=== PATIENT | female | born 1950 | race Caucasian/White ===

== ENCOUNTER 2020-10-07 16:03 | Inpatient (IN) ==
[2020-10-07] MEDS ORDERED: cloNIDine HCL 0.1 MG TABLET PO ONE (16:27)
[2020-10-07 16:41] LABS: Bilirubin,Urine Negative (Negative); Blood,Urine Negative (Negative); Clarity,Urine Clear (Clear); Color,Urine Yellow (Yellow); Glucose,Urine (UA) Normal (Normal); Ketones,Urine Negative (Negative); Leukocyte Esterase,Urine Trace (Negative); Nitrite,Urine Negative (Negative); Protein,Urine Negative (Neg-Trace); Urobilinogen,Urine Normal (Normal)
[2020-10-07 16:48] LABS: Bacteria,Urine Few per hpf (None-Few); Squamous Epithelial Cell,Urine Moderate per hpf (None-Few)
[2020-10-07 16:51] LABS: Basophils % 0.4 %; Eosinophils # 0.2 K/mcL (0.0-0.6); Eosinophils % 1.5 %; Hematocrit 43.1 % (35.3-44.9); Hemoglobin 13.2 g/dL (11.5-15.4); Immature Granulocytes % 0.6 % (0-4); Lymphocytes # 1.6 K/mcL (0.6-4.6); Lymphocytes % 16.5 %; Mean Corpuscular HGB Conc 30.6 g/dL (31.6-35.5); Mean Corpuscular Hemoglobin 26.9 pg (28.0-33.3); Monocytes # 0.9 K/mcL (0.0-1.3); Monocytes % 8.7 %; Platelet Count 304 K/mcL (140-400); Red Cell Distribution Width 14.7 % (11.5-14.5); Segmented Neutrophils % 72.3 %; White Blood Count 9.7 K/mcL (4.3-11.1)
[2020-10-07 17:06] LABS: INR 1.2; Prothrombin Time 13.6 Seconds (9.4-12.1)
[2020-10-07 17:07] LABS: Alanine Aminotransferase 12 Units/L (7-52); Albumin 3.9 g/dL (3.5-5.7); Albumin/Globulin Ratio 1.2 (1.1-2.2); Alkaline Phosphatase 71 Units/L (34-104); Aspartate Amino Transferase 15 Units/L (13-39); BUN/Creatinine Ratio 19 (6-26); Bilirubin,Total 0.7 mg/dL (0.3-1.0); Blood Urea Nitrogen 13 mg/dL (8-23); Calcium 9.4 mg/dL (8.6-10.3); Carbon Dioxide 26 mEq/L (23-29); Chloride 96 mEq/L (98-107); Globulin 3.3 g/dL (2.4-3.5); Glucose 100 mg/dL (70-105); Magnesium 1.9 mg/dL (1.6-2.6); Osmolality,Calculated 278 (280-300); Phosphorous 3.5 mg/dL (2.7-4.5); Potassium 3.5 mEq/L (3.5-5.1); Sodium 134 mEq/L (136-145); Total Protein 7.2 g/dL (6.4-8.9); eGFR For African Americans > 60 (> 60); eGFR For Non-African Americans > 60 (> 60)
[2020-10-07 17:09] LABS: Activated Partial Thrombo Time 30.3 Seconds (26.0-36.0)
[2020-10-07] MEDS ORDERED: Isovue-370 500 ML BOTTLE IVP ONE (17:25)
[2020-10-07] MEDS ORDERED: Aspirin 81 MG TAB.CHEW PO ONE (17:27)
[2020-10-07] MEDS ORDERED: amLODIPine 5 MG TABLET PO ONE (17:27)
[2020-10-07] MEDS ORDERED: 0.9 % Sodium Chloride 1,000 ML IV ONE (18:36)
[2020-10-07] MEDS ORDERED: *HR* HYDROcodone/Acet 5/325 mg TABLET PO PRN (18:45)
[2020-10-07] MEDS ORDERED: Melatonin 3 MG TABLET PO PRN (18:45)
[2020-10-07] MEDS ORDERED: Mag Hydrox/Al Hydrox/Simeth 30 ML UDC PO PRN (18:45)
[2020-10-07] MEDS ORDERED: Naloxone 0.4 MG/ML INJ IVP PRN (18:45)
[2020-10-07] MEDS ORDERED: Ibuprofen 400 MG TABLET PO PRN (18:45)
[2020-10-07] MEDS ORDERED: MOM Conc 10 ML UD.LIQ PO PRN (18:45)
[2020-10-07] MEDS ORDERED: Ondansetron ODT 4 MG TAB.RAPDIS SL PRN (18:45)
[2020-10-07] MEDS ORDERED: Ondansetron 4 MG/2 ML VIAL IVP PRN (18:45)
[2020-10-07] MEDS ORDERED: Acetaminophen 325 MG TABLET PO PRN (18:45)
[2020-10-07] MEDS ORDERED: hydrALAZINE 10 MG TABLET PO PRN (18:52)
[2020-10-07] MEDS ORDERED: Aspirin Enteric Coated 81 MG Tablet PO SCH (19:00)
[2020-10-07] MEDS: Aspirin Enteric Coated 81 MG Tablet PO SCH (20:42)
[2020-10-08 04:49] LABS: Basophils % 0.4 %; Eosinophils # 0.2 K/mcL (0.0-0.6); Eosinophils % 2.6 %; Hematocrit 39.5 % (35.3-44.9); Hemoglobin 12.3 g/dL (11.5-15.4); Immature Granulocytes % 0.6 % (0-4); Lymphocytes # 1.1 K/mcL (0.6-4.6); Lymphocytes % 14.7 %; Mean Corpuscular HGB Conc 31.1 g/dL (31.6-35.5); Mean Corpuscular Hemoglobin 27.3 pg (28.0-33.3); Mean Corpuscular Volume 87.6 fL (83.0-100.0); Monocytes # 0.7 K/mcL (0.0-1.3); Monocytes % 9.7 %; Neutrophils # 5.2 K/mcL (1.6-8.9); Platelet Count 258 K/mcL (140-400); Red Blood Count 4.51 M/mcL (3.82-4.97); Red Cell Distribution Width 14.7 % (11.5-14.5); White Blood Count 7.2 K/mcL (4.3-11.1)
[2020-10-08 05:07] LABS: Alanine Aminotransferase 11 Units/L (7-52); Albumin 3.5 g/dL (3.5-5.7); Albumin/Globulin Ratio 1.2 (1.1-2.2); Alkaline Phosphatase 62 Units/L (34-104); Aspartate Amino Transferase 14 Units/L (13-39); BUN/Creatinine Ratio 14 (6-26); Bilirubin,Total 0.6 mg/dL (0.3-1.0); Blood Urea Nitrogen 8 mg/dL (8-23); Calcium 8.9 mg/dL (8.6-10.3); Carbon Dioxide 28 mEq/L (23-29); Chloride 102 mEq/L (98-107); Cholesterol 175 mg/dL (< 200); Globulin 2.9 g/dL (2.4-3.5); Glucose 85 mg/dL (70-105); HDL Cholesterol 44 mg/dL (40-59); LDL Cholesterol,Calculated 118 mg/dL (< 100); Osmolality,Calculated 286 (280-300); Phosphorous 3.6 mg/dL (2.7-4.5); Potassium 3.8 mEq/L (3.5-5.1); Sodium 139 mEq/L (136-145); Total Protein 6.4 g/dL (6.4-8.9); Triglycerides 66 mg/dL (< 150); eGFR For African Americans > 60 (> 60); eGFR For Non-African Americans > 60 (> 60)
[2020-10-08] MEDS: *HR* Enoxaparin 40 MG/0.4 ML SYRINGE SQ SCH (05:51)
[2020-10-08] MEDS: Aspirin Enteric Coated 81 MG Tablet PO SCH (08:42)
[2020-10-08] MEDS: amLODIPine 5 MG TABLET PO SCH (08:42)
[2020-10-08] MEDS ORDERED: cloNIDine HCL 0.1 MG TABLET PO PRN (13:37)
[2020-10-09] MEDS: *HR* Enoxaparin 40 MG/0.4 ML SYRINGE SQ SCH (05:24)
[2020-10-09 07:08] VITALS: BP 164/81
[2020-10-09] MEDS: amLODIPine 5 MG TABLET PO SCH (08:56)
[2020-10-09] MEDS: Aspirin Enteric Coated 81 MG Tablet PO SCH (08:56)
[2020-10-09 13:00] LABS: Folate 19.3 ng/mL (3.0-16.0)
== END 2020-10-09 11:03 | disposition home or self-care (01) | DRG 305 ==
LOC: INPGRE 16:03 → EMEROOGRE 16:03 → INPGRE 20:11
PROVIDERS: ADMIT Family Medicine; ATTEND Family Medicine

== ENCOUNTER 2020-10-13 11:28 | Inpatient (IN) ==
[2020-10-14] MEDS ORDERED: cloNIDine HCL 0.1 MG TABLET PO PRN (16:22)
[2020-10-14] MEDS: *HR* Rivaroxaban 10 MG TABLET PO SCH (17:22)
[2020-10-14] MEDS: *HR* OxyCODONE Immed Rel 5 MG TABLET PO PRN (19:59)
[2020-10-15 04:51] LABS: Basophils # 0.1 K/mcL (0.0-0.2); Basophils % 0.5 %; Eosinophils # 0.4 K/mcL (0.0-0.6); Eosinophils % 3.8 %; Hematocrit 31.1 % (35.3-44.9); Hemoglobin 9.6 g/dL (11.5-15.4); Immature Granulocytes % 2.8 % (0-4); Lymphocytes # 1.8 K/mcL (0.6-4.6); Lymphocytes % 19.6 %; Mean Corpuscular HGB Conc 30.9 g/dL (31.6-35.5); Mean Corpuscular Volume 87.4 fL (83.0-100.0); Mean Platelet Volume 11.8 fL (9.4-12.4); Monocytes % 10.7 %; Neutrophils # 5.9 K/mcL (1.6-8.9); Platelet Count 297 K/mcL (140-400); Red Blood Count 3.56 M/mcL (3.82-4.97); Red Cell Distribution Width 15.6 % (11.5-14.5); Segmented Neutrophils % 62.6 %; White Blood Count 9.4 K/mcL (4.3-11.1)
[2020-10-15 05:07] LABS: Alanine Aminotransferase 18 Units/L (7-52); Albumin 2.8 g/dL (3.5-5.7); Albumin/Globulin Ratio 1.1 (1.1-2.2); Alkaline Phosphatase 56 Units/L (34-104); Aspartate Amino Transferase 18 Units/L (13-39); BUN/Creatinine Ratio 32 (6-26); Blood Urea Nitrogen 20 mg/dL (8-23); Calcium 8.7 mg/dL (8.6-10.3); Carbon Dioxide 28 mEq/L (23-29); Chloride 101 mEq/L (98-107); Globulin 2.5 g/dL (2.4-3.5); Glucose 87 mg/dL (70-105); Magnesium 1.9 mg/dL (1.6-2.6); Osmolality,Calculated 286 (280-300); Potassium 4.3 mEq/L (3.5-5.1); Sodium 137 mEq/L (136-145); Total Protein 5.3 g/dL (6.4-8.9); eGFR For African Americans > 60 (> 60); eGFR For Non-African Americans > 60 (> 60)
[2020-10-15] MEDS: *HR* OxyCODONE Immed Rel 5 MG TABLET PO PRN ×3 (08:18→21:06)
[2020-10-15] MEDS: amLODIPine 5 MG TABLET PO SCH (08:18)
[2020-10-15] MEDS: Multivit/Ca/Min/Fe/FA 1 TAB TABLET PO SCH (08:18)
[2020-10-15] MEDS: Aspirin Enteric Coated 81 MG Tablet PO SCH (08:18)
[2020-10-15] MEDS: *HR* Rivaroxaban 10 MG TABLET PO SCH (16:07)
[2020-10-16] MEDS: Aspirin Enteric Coated 81 MG Tablet PO SCH (08:00)
[2020-10-16] MEDS: Multivit/Ca/Min/Fe/FA 1 TAB TABLET PO SCH (08:00)
[2020-10-16] MEDS: *HR* OxyCODONE Immed Rel 5 MG TABLET PO PRN ×2 (08:00→20:44)
[2020-10-16] MEDS: amLODIPine 5 MG TABLET PO SCH (08:01)
[2020-10-16 08:40] LABS: Chol/HDL Ratio 4.4 (0-4.9)
[2020-10-16] MEDS: *HR* Rivaroxaban 10 MG TABLET PO SCH (17:03)
[2020-10-17] MEDS: *HR* OxyCODONE Immed Rel 5 MG TABLET PO PRN ×3 (00:44→21:06)
[2020-10-17] MEDS: Multivit/Ca/Min/Fe/FA 1 TAB TABLET PO SCH (09:03)
[2020-10-17] MEDS: amLODIPine 5 MG TABLET PO SCH (09:03)
[2020-10-17] MEDS: Aspirin Enteric Coated 81 MG Tablet PO SCH (09:03)
[2020-10-17] MEDS ORDERED: polyethylene glycoL 3350 17 GM POWD.PACK PO PRN (13:58)
[2020-10-17] MEDS: *HR* Rivaroxaban 10 MG TABLET PO SCH (17:06)
[2020-10-17] MEDS: Sennosides/Docusate Sodium TABLET PO SCH (20:16)
[2020-10-18] MEDS: hydrOXYzine pamoate 25 MG CAPSULE PO PRN (00:34)
[2020-10-18] MEDS: Acetaminophen 325 MG TABLET PO PRN (00:34)
[2020-10-18] MEDS: Aspirin Enteric Coated 81 MG Tablet PO SCH (10:12)
[2020-10-18] MEDS: Multivit/Ca/Min/Fe/FA 1 TAB TABLET PO SCH (10:12)
[2020-10-18] MEDS: amLODIPine 5 MG TABLET PO SCH (10:12)
[2020-10-18] MEDS: Sennosides/Docusate Sodium TABLET PO SCH ×2 (10:12→20:56)
[2020-10-18] MEDS: *HR* OxyCODONE Immed Rel 5 MG TABLET PO PRN ×3 (10:14→20:56)
[2020-10-18] MEDS: *HR* Rivaroxaban 10 MG TABLET PO SCH (16:27)
[2020-10-19] MEDS: *HR* OxyCODONE Immed Rel 5 MG TABLET PO PRN ×2 (01:34→20:16)
[2020-10-19] MEDS: Aspirin Enteric Coated 81 MG Tablet PO SCH (08:08)
[2020-10-19] MEDS: amLODIPine 5 MG TABLET PO SCH (08:08)
[2020-10-19] MEDS: Multivit/Ca/Min/Fe/FA 1 TAB TABLET PO SCH (08:08)
[2020-10-19] MEDS: Sennosides/Docusate Sodium TABLET PO SCH ×2 (08:08→20:15)
[2020-10-19] MEDS: *HR* Rivaroxaban 10 MG TABLET PO SCH (17:28)
[2020-10-19] MEDS: hydrOXYzine pamoate 25 MG CAPSULE PO PRN (20:15)
[2020-10-20] MEDS: *HR* OxyCODONE Immed Rel 5 MG TABLET PO PRN ×2 (02:49→20:42)
[2020-10-20 05:20] LABS: Basophils % 0.3 %; Eosinophils # 0.3 K/mcL (0.0-0.6); Eosinophils % 2.7 %; Hematocrit 27.8 % (35.3-44.9); Hemoglobin 8.5 g/dL (11.5-15.4); Immature Granulocytes % 2.5 % (0-4); Lymphocytes # 1.4 K/mcL (0.6-4.6); Lymphocytes % 14.8 %; Mean Corpuscular HGB Conc 30.6 g/dL (31.6-35.5); Mean Corpuscular Hemoglobin 27.1 pg (28.0-33.3); Mean Corpuscular Volume 88.5 fL (83.0-100.0); Mean Platelet Volume 11.9 fL (9.4-12.4); Monocytes # 1.1 K/mcL (0.0-1.3); Monocytes % 11.4 %; Neutrophils # 6.3 K/mcL (1.6-8.9); Nucleated Red Blood Cells 0.2 /100 WBC (0); Platelet Count 297 K/mcL (140-400); Red Blood Count 3.14 M/mcL (3.82-4.97); Red Cell Distribution Width 16.5 % (11.5-14.5); Segmented Neutrophils % 68.3 %; White Blood Count 9.2 K/mcL (4.3-11.1)
[2020-10-20 05:43] LABS: BUN/Creatinine Ratio 25 (6-26); Blood Urea Nitrogen 15 mg/dL (8-23); Calcium 8.3 mg/dL (8.6-10.3); Carbon Dioxide 28 mEq/L (23-29); Chloride 101 mEq/L (98-107); Glucose 90 mg/dL (70-105); Osmolality,Calculated 282 (280-300); Sodium 136 mEq/L (136-145); eGFR For African Americans > 60 (> 60); eGFR For Non-African Americans > 60 (> 60)
[2020-10-20] MEDS: Aspirin Enteric Coated 81 MG Tablet PO SCH (08:46)
[2020-10-20] MEDS: Sennosides/Docusate Sodium TABLET PO SCH ×2 (08:46→20:42)
[2020-10-20] MEDS: amLODIPine 5 MG TABLET PO SCH (08:46)
[2020-10-20] MEDS: Multivit/Ca/Min/Fe/FA 1 TAB TABLET PO SCH (08:46)
[2020-10-20] MEDS: Acetaminophen 325 MG TABLET PO PRN (08:51)
[2020-10-20] MEDS: *HR* Rivaroxaban 10 MG TABLET PO SCH (17:17)
[2020-10-20] MEDS: hydrOXYzine pamoate 25 MG CAPSULE PO PRN (20:44)
[2020-10-21] MEDS: *HR* OxyCODONE Immed Rel 5 MG TABLET PO PRN ×3 (04:15→19:50)
[2020-10-21] MEDS: Aspirin Enteric Coated 81 MG Tablet PO SCH (08:04)
[2020-10-21] MEDS: amLODIPine 5 MG TABLET PO SCH (08:04)
[2020-10-21] MEDS: Sennosides/Docusate Sodium TABLET PO SCH ×2 (08:04→19:49)
[2020-10-21] MEDS: Multivit/Ca/Min/Fe/FA 1 TAB TABLET PO SCH (08:05)
[2020-10-21] MEDS: *HR* Rivaroxaban 10 MG TABLET PO SCH (16:09)
[2020-10-21] MEDS: hydrOXYzine pamoate 25 MG CAPSULE PO PRN (19:50)
[2020-10-22] MEDS: *HR* OxyCODONE Immed Rel 5 MG TABLET PO PRN ×4 (00:54→20:44)
[2020-10-22] MEDS: Multivit/Ca/Min/Fe/FA 1 TAB TABLET PO SCH (08:20)
[2020-10-22] MEDS: Aspirin Enteric Coated 81 MG Tablet PO SCH (08:20)
[2020-10-22] MEDS: amLODIPine 5 MG TABLET PO SCH (08:20)
[2020-10-22] MEDS: Sennosides/Docusate Sodium TABLET PO SCH ×2 (08:20→20:43)
[2020-10-22] MEDS: *HR* Rivaroxaban 10 MG TABLET PO SCH (15:49)
[2020-10-22] MEDS: hydrOXYzine pamoate 25 MG CAPSULE PO PRN (20:44)
[2020-10-22] MEDS ORDERED: *HR* LORazepam 1 MG TABLET PO ONE (22:46)
[2020-10-23] MEDS: Multivit/Ca/Min/Fe/FA 1 TAB TABLET PO SCH (08:40)
[2020-10-23] MEDS: *HR* OxyCODONE Immed Rel 5 MG TABLET PO PRN ×2 (08:40→22:18)
[2020-10-23] MEDS: Aspirin Enteric Coated 81 MG Tablet PO SCH (08:40)
[2020-10-23] MEDS: amLODIPine 5 MG TABLET PO SCH (08:40)
[2020-10-23] MEDS: Sennosides/Docusate Sodium TABLET PO SCH ×2 (08:40→22:20)
[2020-10-23] MEDS: *HR* Rivaroxaban 10 MG TABLET PO SCH (17:25)
[2020-10-23] MEDS: hydrOXYzine pamoate 25 MG CAPSULE PO PRN (22:18)
[2020-10-24] MEDS: *HR* OxyCODONE Immed Rel 5 MG TABLET PO PRN ×2 (05:09→22:39)
[2020-10-24] MEDS: amLODIPine 5 MG TABLET PO SCH (08:56)
[2020-10-24] MEDS: Sennosides/Docusate Sodium TABLET PO SCH (08:56)
[2020-10-24] MEDS: Multivit/Ca/Min/Fe/FA 1 TAB TABLET PO SCH (08:56)
[2020-10-24] MEDS: Aspirin Enteric Coated 81 MG Tablet PO SCH (08:56)
[2020-10-24] MEDS: *HR* Rivaroxaban 10 MG TABLET PO SCH (17:50)
[2020-10-24] MEDS: hydrOXYzine pamoate 25 MG CAPSULE PO PRN (22:39)
[2020-10-25] MEDS: Sennosides/Docusate Sodium TABLET PO SCH ×3 (04:00→20:49)
[2020-10-25 05:05] LABS: Basophils % 0.4 %; Eosinophils # 0.2 K/mcL (0.0-0.6); Eosinophils % 1.5 %; Hematocrit 28.8 % (35.3-44.9); Hemoglobin 8.9 g/dL (11.5-15.4); Immature Granulocytes % 1.3 % (0-4); Lymphocytes # 1.4 K/mcL (0.6-4.6); Lymphocytes % 12.6 %; Mean Corpuscular HGB Conc 30.9 g/dL (31.6-35.5); Mean Corpuscular Hemoglobin 27.2 pg (28.0-33.3); Mean Corpuscular Volume 88.1 fL (83.0-100.0); Mean Platelet Volume 11.8 fL (9.4-12.4); Monocytes # 0.9 K/mcL (0.0-1.3); Monocytes % 8.1 %; Neutrophils # 8.5 K/mcL (1.6-8.9); Platelet Count 382 K/mcL (140-400); Red Blood Count 3.27 M/mcL (3.82-4.97); Red Cell Distribution Width 16.6 % (11.5-14.5); Segmented Neutrophils % 76.1 %; White Blood Count 11.1 K/mcL (4.3-11.1)
[2020-10-25 05:21] LABS: BUN/Creatinine Ratio 20 (6-26); Blood Urea Nitrogen 11 mg/dL (8-23); Calcium 8.6 mg/dL (8.6-10.3); Carbon Dioxide 29 mEq/L (23-29); Chloride 100 mEq/L (98-107); Glucose 92 mg/dL (70-105); Osmolality,Calculated 281 (280-300); Potassium 4.4 mEq/L (3.5-5.1); Sodium 136 mEq/L (136-145); eGFR For African Americans > 60 (> 60); eGFR For Non-African Americans > 60 (> 60)
[2020-10-25] MEDS: *HR* OxyCODONE Immed Rel 5 MG TABLET PO PRN ×4 (05:25→20:47)
[2020-10-25] MEDS: amLODIPine 5 MG TABLET PO SCH (08:13)
[2020-10-25] MEDS: Aspirin Enteric Coated 81 MG Tablet PO SCH (08:13)
[2020-10-25] MEDS: Multivit/Ca/Min/Fe/FA 1 TAB TABLET PO SCH (08:13)
[2020-10-25] MEDS: *HR* Rivaroxaban 10 MG TABLET PO SCH (16:54)
[2020-10-25] MEDS: hydrOXYzine pamoate 25 MG CAPSULE PO PRN (20:46)
[2020-10-26] MEDS: *HR* OxyCODONE Immed Rel 5 MG TABLET PO PRN ×2 (05:16→20:01)
[2020-10-26] MEDS: amLODIPine 5 MG TABLET PO SCH (08:09)
[2020-10-26] MEDS: Aspirin Enteric Coated 81 MG Tablet PO SCH (08:09)
[2020-10-26] MEDS: Multivit/Ca/Min/Fe/FA 1 TAB TABLET PO SCH (08:09)
[2020-10-26] MEDS: Sennosides/Docusate Sodium TABLET PO SCH ×2 (08:10→20:01)
[2020-10-26] MEDS: *HR* Rivaroxaban 10 MG TABLET PO SCH (16:48)
[2020-10-26] MEDS: hydrOXYzine pamoate 25 MG CAPSULE PO PRN (20:01)
[2020-10-27] MEDS: *HR* OxyCODONE Immed Rel 5 MG TABLET PO PRN ×4 (04:28→20:54)
[2020-10-27] MEDS: Multivit/Ca/Min/Fe/FA 1 TAB TABLET PO SCH (08:39)
[2020-10-27] MEDS: Sennosides/Docusate Sodium TABLET PO SCH ×2 (08:39→20:56)
[2020-10-27] MEDS: Acetaminophen 325 MG TABLET PO PRN (08:39)
[2020-10-27] MEDS: Cyanocobalamin (B-12) 1,000 MCG TABLET PO SCH (08:40)
[2020-10-27] MEDS: amLODIPine 5 MG TABLET PO SCH (08:40)
[2020-10-27] MEDS: Aspirin Enteric Coated 81 MG Tablet PO SCH (08:41)
[2020-10-27] MEDS: *HR* Rivaroxaban 10 MG TABLET PO SCH (15:20)
[2020-10-28] MEDS: *HR* OxyCODONE Immed Rel 5 MG TABLET PO PRN ×4 (02:20→20:24)
[2020-10-28] MEDS: Sennosides/Docusate Sodium TABLET PO SCH ×2 (08:49→20:18)
[2020-10-28] MEDS: amLODIPine 5 MG TABLET PO SCH (08:50)
[2020-10-28] MEDS: Cyanocobalamin (B-12) 1,000 MCG TABLET PO SCH (08:50)
[2020-10-28] MEDS: Aspirin Enteric Coated 81 MG Tablet PO SCH (08:50)
[2020-10-28] MEDS: Multivit/Ca/Min/Fe/FA 1 TAB TABLET PO SCH (08:51)
[2020-10-28] MEDS: *HR* Rivaroxaban 10 MG TABLET PO SCH (16:56)
[2020-10-28] MEDS: hydrOXYzine pamoate 25 MG CAPSULE PO PRN (20:25)
[2020-10-29] MEDS: Sennosides/Docusate Sodium TABLET PO SCH ×2 (08:18→20:59)
[2020-10-29] MEDS: Multivit/Ca/Min/Fe/FA 1 TAB TABLET PO SCH (08:18)
[2020-10-29] MEDS: Aspirin Enteric Coated 81 MG Tablet PO SCH (08:18)
[2020-10-29] MEDS: amLODIPine 5 MG TABLET PO SCH (08:18)
[2020-10-29] MEDS: *HR* OxyCODONE Immed Rel 5 MG TABLET PO PRN (08:18)
[2020-10-29] MEDS: Cyanocobalamin (B-12) 1,000 MCG TABLET PO SCH (08:19)
[2020-10-29] MEDS: *HR* Rivaroxaban 10 MG TABLET PO SCH (16:43)
[2020-10-29] MEDS: Acetaminophen 325 MG TABLET PO PRN (16:43)
[2020-10-29] MEDS: hydrOXYzine pamoate 25 MG CAPSULE PO PRN (21:00)
[2020-10-30] MEDS: *HR* OxyCODONE Immed Rel 5 MG TABLET PO PRN ×3 (03:27→16:57)
[2020-10-30] MEDS: Sennosides/Docusate Sodium TABLET PO SCH ×2 (08:28→20:04)
[2020-10-30] MEDS: Aspirin Enteric Coated 81 MG Tablet PO SCH (08:29)
[2020-10-30] MEDS: Cyanocobalamin (B-12) 1,000 MCG TABLET PO SCH (08:29)
[2020-10-30] MEDS: Multivit/Ca/Min/Fe/FA 1 TAB TABLET PO SCH (08:29)
[2020-10-30] MEDS: amLODIPine 5 MG TABLET PO SCH (08:29)
[2020-10-30] MEDS: *HR* Rivaroxaban 10 MG TABLET PO SCH (16:57)
[2020-10-30] MEDS: hydrOXYzine pamoate 25 MG CAPSULE PO PRN (20:02)
[2020-10-31] MEDS: *HR* OxyCODONE Immed Rel 5 MG TABLET PO PRN ×4 (00:02→20:26)
[2020-10-31] MEDS: Cyanocobalamin (B-12) 1,000 MCG TABLET PO SCH (09:19)
[2020-10-31] MEDS: amLODIPine 5 MG TABLET PO SCH (09:19)
[2020-10-31] MEDS: Multivit/Ca/Min/Fe/FA 1 TAB TABLET PO SCH (09:19)
[2020-10-31] MEDS: Aspirin Enteric Coated 81 MG Tablet PO SCH (09:19)
[2020-10-31] MEDS: Sennosides/Docusate Sodium TABLET PO SCH ×2 (09:19→20:26)
[2020-10-31] MEDS: *HR* Rivaroxaban 10 MG TABLET PO SCH (15:11)
[2020-10-31] MEDS: hydrOXYzine pamoate 25 MG CAPSULE PO PRN (20:26)
[2020-11-01] MEDS: amLODIPine 5 MG TABLET PO SCH (08:04)
[2020-11-01] MEDS: Aspirin Enteric Coated 81 MG Tablet PO SCH (08:04)
[2020-11-01] MEDS: Cyanocobalamin (B-12) 1,000 MCG TABLET PO SCH (08:05)
[2020-11-01] MEDS: Sennosides/Docusate Sodium TABLET PO SCH ×2 (08:05→21:36)
[2020-11-01] MEDS: *HR* OxyCODONE Immed Rel 5 MG TABLET PO PRN ×2 (08:05→21:36)
[2020-11-01] MEDS: Multivit/Ca/Min/Fe/FA 1 TAB TABLET PO SCH (08:05)
[2020-11-01] MEDS: *HR* Rivaroxaban 10 MG TABLET PO SCH (16:22)
[2020-11-01] MEDS: hydrOXYzine pamoate 25 MG CAPSULE PO PRN (21:36)
[2020-11-02] MEDS: Acetaminophen 325 MG TABLET PO PRN ×2 (04:47→17:03)
[2020-11-02] MEDS: Aspirin Enteric Coated 81 MG Tablet PO SCH (08:01)
[2020-11-02] MEDS: Cyanocobalamin (B-12) 1,000 MCG TABLET PO SCH (08:01)
[2020-11-02] MEDS: Multivit/Ca/Min/Fe/FA 1 TAB TABLET PO SCH (08:01)
[2020-11-02] MEDS: Sennosides/Docusate Sodium TABLET PO SCH ×2 (08:02→20:45)
[2020-11-02] MEDS: amLODIPine 5 MG TABLET PO SCH (08:02)
[2020-11-02] MEDS ORDERED: ALPRAZolam 0.5 MG TABLET PO PRN (10:21)
[2020-11-02] MEDS: *HR* Rivaroxaban 10 MG TABLET PO SCH (17:03)
[2020-11-02] MEDS: hydrOXYzine pamoate 25 MG CAPSULE PO PRN (20:45)
[2020-11-03 07:06] VITALS: BP 161/76
[2020-11-03] MEDS: amLODIPine 5 MG TABLET PO SCH (07:51)
[2020-11-03] MEDS: Cyanocobalamin (B-12) 1,000 MCG TABLET PO SCH (07:51)
[2020-11-03] MEDS: Multivit/Ca/Min/Fe/FA 1 TAB TABLET PO SCH (07:51)
[2020-11-03] MEDS: Aspirin Enteric Coated 81 MG Tablet PO SCH (07:52)
[2020-11-03] MEDS: Sennosides/Docusate Sodium TABLET PO SCH (07:52)
== END 2020-11-03 15:00 | disposition home health service (06) | DRG 560 ==
LOC: INPGRE 10-14 16:04
PROVIDERS: ADMIT Family Medicine; ATTEND Family Medicine

== ENCOUNTER 2020-12-15 14:56 | Inpatient (IN) ==
[2020-12-15] MEDS ORDERED: Levalbuterol Neb 0.63 MG/3 ML IH PRN (21:54)
[2020-12-15] MEDS ORDERED: *HR* HYDROcodone/Acet 5/325 mg TABLET PO PRN (21:54)
[2020-12-15] MEDS: metroNIDAZOLE 500 MG TABLET PO SCH (23:36)
[2020-12-16] MEDS: *HR* Enoxaparin 40 MG/0.4 ML SYRINGE SQ SCH (04:56)
[2020-12-16 05:56] LABS: Basophils # 0.1 K/mcL (0.0-0.2); Basophils % 0.6 %; Eosinophils # 0.6 K/mcL (0.0-0.6); Eosinophils % 4.7 %; Hematocrit 30.9 % (35.3-44.9); Hemoglobin 9.3 g/dL (11.5-15.4); Immature Granulocytes % 2.8 % (0-4); Lymphocytes # 2.2 K/mcL (0.6-4.6); Lymphocytes % 16.8 %; Mean Corpuscular HGB Conc 30.1 g/dL (31.6-35.5); Mean Corpuscular Hemoglobin 26.4 pg (28.0-33.3); Mean Corpuscular Volume 87.8 fL (83.0-100.0); Neutrophils # 8.6 K/mcL (1.6-8.9); Platelet Count 330 K/mcL (140-400); Red Blood Count 3.52 M/mcL (3.82-4.97); Red Cell Distribution Width 21.1 % (11.5-14.5); Segmented Neutrophils % 67.1 %; White Blood Count 12.8 K/mcL (4.3-11.1)
[2020-12-16 06:18] LABS: Calcium 8.3 mg/dL (8.6-10.3); Potassium 3.7 mEq/L (3.5-5.1)
[2020-12-16] MEDS: Multivit/Ca/Min/Fe/FA 1 TAB TABLET PO SCH (09:38)
[2020-12-16] MEDS: Fluconazole 100 MG TABLET PO SCH (09:38)
[2020-12-16] MEDS: Aspirin Enteric Coated 81 MG Tablet PO SCH (09:39)
[2020-12-16] MEDS: Furosemide 40 MG TABLET PO SCH (09:39)
[2020-12-16] MEDS: Cyanocobalamin (B-12) 1,000 MCG TABLET PO SCH (09:39)
[2020-12-16] MEDS: metroNIDAZOLE 500 MG TABLET PO SCH ×3 (09:39→21:50)
[2020-12-16] MEDS ORDERED: polyethylene glycoL 3350 17 GM POWD.PACK PO PRN (09:44)
[2020-12-16] MEDS: Erythromycin OPTH Oint BOTH EYES SCH ×4 (09:46→21:50)
[2020-12-16] MEDS: Sennosides/Docusate Sodium TABLET PO SCH ×2 (16:28→21:50)
[2020-12-16] MEDS: Ondansetron 4 MG/2 ML VIAL IVP PRN (16:28)
[2020-12-16 16:43] LABS: Bilirubin,Urine Small (Negative); Blood,Urine Large (Negative); Clarity,Urine Clear (Clear); Color,Urine Yellow (Yellow); Glucose,Urine (UA) Normal (Normal); Ketones,Urine 15 mg/dL (Negative); Leukocyte Esterase,Urine Negative (Negative); Nitrite,Urine Negative (Negative); PH,Urine 5.5 pH Units (5.0-8.0); Protein,Urine 100 mg/dL (Neg-Trace); Specific Gravity,Urine 1.025 (1.010-1.025); Urobilinogen,Urine Normal (Normal)
[2020-12-16 16:51] LABS: RBC,Urine TNTC per hpf (0-3)
[2020-12-16] MEDS ORDERED: Bisacodyl 10 MG RECTAL SUPPOSITORY RC PRN (19:06)
[2020-12-17] MEDS: Ondansetron 4 MG/2 ML VIAL IVP PRN (00:15)
[2020-12-17] MEDS: hydrOXYzine pamoate 25 MG CAPSULE PO PRN ×2 (00:15→20:30)
[2020-12-17] MEDS: *HR* Enoxaparin 40 MG/0.4 ML SYRINGE SQ SCH (06:07)
[2020-12-17 06:57] LABS: Hematocrit 29.5 % (35.3-44.9); Hemoglobin 9.1 g/dL (11.5-15.4); Mean Corpuscular HGB Conc 30.8 g/dL (31.6-35.5); Mean Corpuscular Hemoglobin 26.9 pg (28.0-33.3); Mean Corpuscular Volume 87.3 fL (83.0-100.0); Mean Platelet Volume 11.8 fL (9.4-12.4); Platelet Count 335 K/mcL (140-400); Red Blood Count 3.38 M/mcL (3.82-4.97); Red Cell Distribution Width 21.1 % (11.5-14.5); White Blood Count 11.4 K/mcL (4.3-11.1)
[2020-12-17 07:28] LABS: Magnesium 1.8 mg/dL (1.6-2.6); Potassium 3.8 mEq/L (3.5-5.1)
[2020-12-17] MEDS: Cyanocobalamin (B-12) 1,000 MCG TABLET PO SCH (08:48)
[2020-12-17] MEDS: Aspirin Enteric Coated 81 MG Tablet PO SCH (08:48)
[2020-12-17] MEDS: Fluconazole 100 MG TABLET PO SCH (08:48)
[2020-12-17] MEDS: metroNIDAZOLE 500 MG TABLET PO SCH ×3 (08:48→20:30)
[2020-12-17] MEDS: Multivit/Ca/Min/Fe/FA 1 TAB TABLET PO SCH (08:49)
[2020-12-17] MEDS: polyethylene glycoL 3350 17 GM POWD.PACK PO SCH (08:49)
[2020-12-17] MEDS: Furosemide 40 MG TABLET PO SCH (08:49)
[2020-12-17] MEDS: Sennosides/Docusate Sodium TABLET PO SCH ×2 (08:50→20:30)
[2020-12-17] MEDS: Erythromycin OPTH Oint BOTH EYES SCH ×4 (08:51→20:30)
[2020-12-17] MEDS: *HR* Enoxaparin 100 MG/ML SYRINGE SQ SCH (17:26)
[2020-12-18] MEDS: *HR* Enoxaparin 100 MG/ML SYRINGE SQ SCH ×2 (05:40→16:23)
[2020-12-18 06:37] LABS: Hematocrit 29.2 % (35.3-44.9); Hemoglobin 8.9 g/dL (11.5-15.4); Mean Corpuscular HGB Conc 30.5 g/dL (31.6-35.5); Mean Corpuscular Hemoglobin 26.5 pg (28.0-33.3); Mean Corpuscular Volume 86.9 fL (83.0-100.0); Mean Platelet Volume 11.7 fL (9.4-12.4); Platelet Count 328 K/mcL (140-400); Red Blood Count 3.36 M/mcL (3.82-4.97); Red Cell Distribution Width 21.2 % (11.5-14.5); White Blood Count 10.2 K/mcL (4.3-11.1)
[2020-12-18 06:52] LABS: Albumin 2.4 g/dL (3.5-5.7); Albumin/Globulin Ratio 1.3 (1.1-2.2); Bilirubin,Total 0.5 mg/dL (0.3-1.0); Calcium 8.1 mg/dL (8.6-10.3); Globulin 1.9 g/dL (2.4-3.5); Magnesium 1.7 mg/dL (1.6-2.6); Potassium 3.7 mEq/L (3.5-5.1); Total Protein 4.3 g/dL (6.4-8.9)
[2020-12-18] MEDS: polyethylene glycoL 3350 17 GM POWD.PACK PO SCH (08:06)
[2020-12-18] MEDS: Sennosides/Docusate Sodium TABLET PO SCH ×2 (08:07→20:59)
[2020-12-18] MEDS: Fluconazole 100 MG TABLET PO SCH (08:07)
[2020-12-18] MEDS: Multivit/Ca/Min/Fe/FA 1 TAB TABLET PO SCH (08:07)
[2020-12-18] MEDS: Furosemide 40 MG TABLET PO SCH (08:07)
[2020-12-18] MEDS: metroNIDAZOLE 500 MG TABLET PO SCH ×3 (08:07→20:59)
[2020-12-18] MEDS: Cyanocobalamin (B-12) 1,000 MCG TABLET PO SCH (08:08)
[2020-12-18] MEDS: Aspirin Enteric Coated 81 MG Tablet PO SCH (08:08)
[2020-12-18] MEDS: Erythromycin OPTH Oint BOTH EYES SCH ×4 (09:53→21:00)
[2020-12-19] MEDS: *HR* Enoxaparin 100 MG/ML SYRINGE SQ SCH (04:57)
[2020-12-19] MEDS: Aspirin Enteric Coated 81 MG Tablet PO SCH (09:13)
[2020-12-19] MEDS: metroNIDAZOLE 500 MG TABLET PO SCH (09:13)
[2020-12-19] MEDS: Fluconazole 100 MG TABLET PO SCH (09:13)
[2020-12-19] MEDS: Furosemide 40 MG TABLET PO SCH (09:14)
[2020-12-19] MEDS: Multivit/Ca/Min/Fe/FA 1 TAB TABLET PO SCH (09:14)
[2020-12-19] MEDS: Cyanocobalamin (B-12) 1,000 MCG TABLET PO SCH (09:14)
[2020-12-19] MEDS: polyethylene glycoL 3350 17 GM POWD.PACK PO SCH (09:14)
[2020-12-19] MEDS: Erythromycin OPTH Oint BOTH EYES SCH ×4 (09:14→20:37)
[2020-12-19] MEDS: Sennosides/Docusate Sodium TABLET PO SCH ×2 (09:14→20:29)
[2020-12-19] MEDS: Apixaban 5 MG TABLET PO SCH (20:31)
[2020-12-20] MEDS: Multivit/Ca/Min/Fe/FA 1 TAB TABLET PO SCH (10:08)
[2020-12-20] MEDS: Aspirin Enteric Coated 81 MG Tablet PO SCH (10:08)
[2020-12-20] MEDS: polyethylene glycoL 3350 17 GM POWD.PACK PO SCH (10:08)
[2020-12-20] MEDS: Cyanocobalamin (B-12) 1,000 MCG TABLET PO SCH (10:09)
[2020-12-20] MEDS: Furosemide 40 MG TABLET PO SCH (10:09)
[2020-12-20] MEDS: Sennosides/Docusate Sodium TABLET PO SCH ×2 (10:09→21:52)
[2020-12-20] MEDS: Apixaban 5 MG TABLET PO SCH ×2 (10:09→21:52)
[2020-12-20] MEDS: Erythromycin OPTH Oint BOTH EYES SCH ×4 (10:12→21:56)
[2020-12-20 11:36] LABS: Bilirubin,Urine Moderate (Negative); Blood,Urine Large (Negative); Clarity,Urine Slightly Cloudy (Clear); Color,Urine Amber (Yellow); Glucose,Urine (UA) Normal (Normal); Ketones,Urine 15 mg/dL (Negative); Leukocyte Esterase,Urine Negative (Negative); Nitrite,Urine Negative (Negative); Protein,Urine >=300 mg/dL (Neg-Trace); Specific Gravity,Urine >= 1.030 (1.010-1.025); Urobilinogen,Urine Normal (Normal)
[2020-12-20 11:40] LABS: WBC,Urine 0-3 per hpf (0-3)
[2020-12-20 11:41] LABS: Amorphous Sediment,Urine Few per hpf (None-Few)
[2020-12-20 14:30] LABS: Basophils % 0.3 %; Eosinophils # 0.1 K/mcL (0.0-0.6); Eosinophils % 0.6 %; Hematocrit 30.4 % (35.3-44.9); Hemoglobin 9.6 g/dL (11.5-15.4); Immature Granulocytes % 1.1 % (0-4); Lymphocytes # 1.5 K/mcL (0.6-4.6); Lymphocytes % 13.8 %; Mean Corpuscular HGB Conc 31.6 g/dL (31.6-35.5); Mean Corpuscular Volume 85.6 fL (83.0-100.0); Monocytes # 0.8 K/mcL (0.0-1.3); Monocytes % 7.7 %; Neutrophils # 8.1 K/mcL (1.6-8.9); Platelet Count 307 K/mcL (140-400); Red Blood Count 3.55 M/mcL (3.82-4.97); Red Cell Distribution Width 21.2 % (11.5-14.5); Segmented Neutrophils % 76.5 %; White Blood Count 10.6 K/mcL (4.3-11.1)
[2020-12-20 15:02] LABS: BUN/Creatinine Ratio 23 (6-26); Blood Urea Nitrogen 24 mg/dL (8-23); Calcium 8.2 mg/dL (8.6-10.3); Carbon Dioxide 21 mEq/L (23-29); Chloride 96 mEq/L (98-107); Glucose 52 mg/dL (70-105); Osmolality,Calculated 275 (280-300); Potassium 3.6 mEq/L (3.5-5.1); Sodium 132 mEq/L (136-145); eGFR For African Americans > 60 (> 60); eGFR For Non-African Americans 53 (> 60)
[2020-12-21] MEDS: Cyanocobalamin (B-12) 1,000 MCG TABLET PO SCH (07:27)
[2020-12-21] MEDS: polyethylene glycoL 3350 17 GM POWD.PACK PO SCH (07:28)
[2020-12-21] MEDS: Aspirin Enteric Coated 81 MG Tablet PO SCH (07:28)
[2020-12-21] MEDS: Sennosides/Docusate Sodium TABLET PO SCH ×2 (07:28→20:29)
[2020-12-21] MEDS: Multivit/Ca/Min/Fe/FA 1 TAB TABLET PO SCH (07:28)
[2020-12-21] MEDS: Furosemide 40 MG TABLET PO SCH (07:28)
[2020-12-21] MEDS: Apixaban 5 MG TABLET PO SCH ×2 (07:28→20:30)
[2020-12-21] MEDS: Erythromycin OPTH Oint BOTH EYES SCH ×4 (07:29→20:36)
[2020-12-21] MEDS: hydrOXYzine pamoate 25 MG CAPSULE PO PRN (20:30)
[2020-12-22] MEDS: Apixaban 5 MG TABLET PO SCH ×2 (07:57→21:50)
[2020-12-22] MEDS: Cyanocobalamin (B-12) 1,000 MCG TABLET PO SCH (07:57)
[2020-12-22] MEDS: polyethylene glycoL 3350 17 GM POWD.PACK PO SCH (07:57)
[2020-12-22] MEDS: Furosemide 40 MG TABLET PO SCH ×2 (07:58→16:09)
[2020-12-22] MEDS: Erythromycin OPTH Oint BOTH EYES SCH ×4 (07:58→21:56)
[2020-12-22] MEDS: Multivit/Ca/Min/Fe/FA 1 TAB TABLET PO SCH (07:58)
[2020-12-22] MEDS: Aspirin Enteric Coated 81 MG Tablet PO SCH (07:58)
[2020-12-22] MEDS: Sennosides/Docusate Sodium TABLET PO SCH ×2 (07:58→21:51)
[2020-12-22] MEDS: hydrOXYzine pamoate 25 MG CAPSULE PO PRN (21:51)
[2020-12-23 06:13] LABS: Basophils % 0.2 %; Eosinophils # 0.1 K/mcL (0.0-0.6); Eosinophils % 0.9 %; Hematocrit 29.6 % (35.3-44.9); Hemoglobin 9.4 g/dL (11.5-15.4); Immature Granulocytes % 0.7 % (0-4); Lymphocytes # 2.1 K/mcL (0.6-4.6); Lymphocytes % 20.7 %; Mean Corpuscular HGB Conc 31.8 g/dL (31.6-35.5); Mean Corpuscular Hemoglobin 26.6 pg (28.0-33.3); Mean Corpuscular Volume 83.6 fL (83.0-100.0); Mean Platelet Volume 11.8 fL (9.4-12.4); Monocytes # 0.9 K/mcL (0.0-1.3); Neutrophils # 6.8 K/mcL (1.6-8.9); Platelet Count 233 K/mcL (140-400); Red Blood Count 3.54 M/mcL (3.82-4.97); Red Cell Distribution Width 20.6 % (11.5-14.5); Segmented Neutrophils % 68.5 %; White Blood Count 9.9 K/mcL (4.3-11.1)
[2020-12-23 06:37] LABS: Potassium 3.5 mEq/L (3.5-5.1)
[2020-12-23] MEDS: Furosemide 40 MG TABLET PO SCH ×2 (08:02→17:40)
[2020-12-23] MEDS: Multivit/Ca/Min/Fe/FA 1 TAB TABLET PO SCH (08:02)
[2020-12-23] MEDS: Cyanocobalamin (B-12) 1,000 MCG TABLET PO SCH (08:02)
[2020-12-23] MEDS: Sennosides/Docusate Sodium TABLET PO SCH ×2 (08:02→20:55)
[2020-12-23] MEDS: Apixaban 5 MG TABLET PO SCH ×2 (08:02→20:53)
[2020-12-23] MEDS: Aspirin Enteric Coated 81 MG Tablet PO SCH (08:02)
[2020-12-23] MEDS: Erythromycin OPTH Oint BOTH EYES SCH ×4 (08:03→21:02)
[2020-12-23] MEDS: polyethylene glycoL 3350 17 GM POWD.PACK PO SCH (08:03)
[2020-12-24 05:59] LABS: Basophils % 0.4 %; Eosinophils # 0.1 K/mcL (0.0-0.6); Eosinophils % 1.1 %; Hematocrit 29.4 % (35.3-44.9); Immature Granulocytes % 0.5 % (0-4); Lymphocytes % 20.8 %; Mean Corpuscular HGB Conc 30.6 g/dL (31.6-35.5); Mean Corpuscular Hemoglobin 26.2 pg (28.0-33.3); Mean Corpuscular Volume 85.7 fL (83.0-100.0); Mean Platelet Volume 12.7 fL (9.4-12.4); Monocytes # 0.8 K/mcL (0.0-1.3); Neutrophils # 6.4 K/mcL (1.6-8.9); Platelet Count 190 K/mcL (140-400); Red Blood Count 3.43 M/mcL (3.82-4.97); Red Cell Distribution Width 20.8 % (11.5-14.5); Segmented Neutrophils % 68.2 %; White Blood Count 9.4 K/mcL (4.3-11.1)
[2020-12-24 06:16] LABS: BUN/Creatinine Ratio 31 (6-26); Blood Urea Nitrogen 34 mg/dL (8-23); Calcium 7.8 mg/dL (8.6-10.3); Carbon Dioxide 24 mEq/L (23-29); Chloride 91 mEq/L (98-107); Glucose 86 mg/dL (70-105); Osmolality,Calculated 275 (280-300); Potassium 3.3 mEq/L (3.5-5.1); Sodium 129 mEq/L (136-145); eGFR For African Americans > 60 (> 60); eGFR For Non-African Americans 50 (> 60)
[2020-12-24] MEDS: Apixaban 5 MG TABLET PO SCH ×2 (09:47→19:44)
[2020-12-24] MEDS: Furosemide 40 MG TABLET PO SCH ×2 (09:48→15:59)
[2020-12-24] MEDS: Multivit/Ca/Min/Fe/FA 1 TAB TABLET PO SCH (09:48)
[2020-12-24] MEDS: Aspirin Enteric Coated 81 MG Tablet PO SCH (09:48)
[2020-12-24] MEDS: Cyanocobalamin (B-12) 1,000 MCG TABLET PO SCH (09:48)
[2020-12-24] MEDS: Sennosides/Docusate Sodium TABLET PO SCH (09:49)
[2020-12-24] MEDS: polyethylene glycoL 3350 17 GM POWD.PACK PO SCH (09:49)
[2020-12-24] MEDS: Erythromycin OPTH Oint BOTH EYES SCH ×4 (09:49→19:45)
[2020-12-24] MEDS ORDERED: polyethylene glycoL 3350 17 GM POWD.PACK PO PRN (11:45)
[2020-12-24] MEDS ORDERED: Sennosides/Docusate Sodium TABLET PO PRN (11:45)
[2020-12-25] MEDS: Aspirin Enteric Coated 81 MG Tablet PO SCH (08:30)
[2020-12-25] MEDS: Apixaban 5 MG TABLET PO SCH ×2 (08:30→23:14)
[2020-12-25] MEDS: Furosemide 40 MG TABLET PO SCH ×2 (08:31→18:45)
[2020-12-25] MEDS: Cyanocobalamin (B-12) 1,000 MCG TABLET PO SCH (08:31)
[2020-12-25] MEDS: Multivit/Ca/Min/Fe/FA 1 TAB TABLET PO SCH (08:31)
[2020-12-25] MEDS: Erythromycin OPTH Oint BOTH EYES SCH ×3 (18:44→23:13)
[2020-12-26 07:36] LABS: Basophils % 0.3 %; Eosinophils # 0.5 K/mcL (0.0-0.6); Eosinophils % 4.7 %; Hemoglobin 8.6 g/dL (11.5-15.4); Immature Granulocytes % 0.7 % (0-4); Lymphocytes # 1.8 K/mcL (0.6-4.6); Lymphocytes % 16.3 %; Mean Corpuscular HGB Conc 31.9 g/dL (31.6-35.5); Mean Corpuscular Hemoglobin 26.8 pg (28.0-33.3); Mean Corpuscular Volume 84.1 fL (83.0-100.0); Monocytes # 0.3 K/mcL (0.0-1.3); Neutrophils # 8.4 K/mcL (1.6-8.9); Platelet Count 165 K/mcL (140-400); Red Blood Count 3.21 M/mcL (3.82-4.97); Red Cell Distribution Width 19.2 % (11.5-14.5); White Blood Count 11.2 K/mcL (4.3-11.1)
[2020-12-26 07:39] VITALS: BP 137/78; PULSE 99; RESP 18; TEMP 98.2; O2SAT 95
[2020-12-26 07:41] LABS: BUN/Creatinine Ratio 34 (6-26); Blood Urea Nitrogen 31 mg/dL (8-23); Calcium 7.6 mg/dL (8.6-10.3); Carbon Dioxide 29 mEq/L (23-29); Chloride 90 mEq/L (98-107); Glucose 75 mg/dL (70-105); Osmolality,Calculated 273 (280-300); Potassium 3.6 mEq/L (3.5-5.1); Sodium 129 mEq/L (136-145); eGFR For African Americans > 60 (> 60); eGFR For Non-African Americans > 60 (> 60)
[2020-12-26] MEDS: Apixaban 5 MG TABLET PO SCH (08:55)
[2020-12-26] MEDS: Multivit/Ca/Min/Fe/FA 1 TAB TABLET PO SCH (08:55)
[2020-12-26] MEDS: Cyanocobalamin (B-12) 1,000 MCG TABLET PO SCH (08:55)
[2020-12-26] MEDS: Aspirin Enteric Coated 81 MG Tablet PO SCH (08:55)
[2020-12-26] MEDS: Furosemide 40 MG TABLET PO SCH (08:55)
[2020-12-27] MEDS ORDERED: Apixaban 5 MG TABLET PO SCH (09:00)
== END 2020-12-26 12:05 | disposition other institution (70) | DRG 945 ==
LOC: INPGRE 20:55
PROVIDERS: ADMIT Family Medicine; ATTEND Family Medicine